=== PATIENT | female | born 1955 | race Two or more races ===

== ENCOUNTER 2019-05-09 08:35 | Day surgery (SDC) | payer OTHER | END 2019-05-09 13:25 | disposition home or self-care (01) | LOC: AMB-ENDOS 08:35 | DX: K63.89 Other specified diseases of intestine (principal); Z12.11 Encounter for screening for malignant neoplasm of colon ==

== ENCOUNTER 2019-08-14 05:50 | Inpatient (IN) | payer OTHER ==
[~2019-08-14 05:50] MED LIST: DILANTIN100 MG PO; LIPITOR20 MG PO; PROTONIX20 MG PO; ZESTRIL5 MG PO
[2019-08-21] MEDS ORDERED: ONDANSETRON ODT4 MG PO (10:48)
[2019-08-21] MEDS ORDERED: PROTONIX40 MG PO (10:49)
[2019-08-21] MEDS ORDERED: PEPCID AC20 MG PO (10:49)
== END 2019-08-21 14:30 | disposition home or self-care (01) | DRG 748 ==
LOC: CIR.AMB 05:50 → O/R 12:34 → SURH 12:34
PROVIDERS: ADMIT Surgery
PROC: 3E0T3BZ Introduction of Anesthetic Agent into Peripheral Nerves and Plexi, Percutaneous Approach (ICD-10-PCS; 2019-08-14)
PROC: BW40ZZZ Ultrasonography of Abdomen (ICD-10-PCS; 2019-08-14)
PROC: 0JQC0ZZ Repair Pelvic Region Subcutaneous Tissue and Fascia, Open Approach (ICD-10-PCS; principal; 2019-08-14 07:00)
PROC: 0DNW4ZZ Release Peritoneum, Percutaneous Endoscopic Approach (ICD-10-PCS; 2019-08-19)
PROC: BF03YZZ Plain Radiography of Gallbladder and Bile Ducts using Other Contrast (ICD-10-PCS; 2019-08-19)
DX: N81.6 Rectocele (principal); K56.51 Intestinal adhesions [bands], with partial obstruction; K80.10 Calculus of gallbladder with chronic cholecystitis without obstruction; K55.20 Angiodysplasia of colon without hemorrhage; K44.9 Diaphragmatic hernia without obstruction or gangrene

== ENCOUNTER 2019-09-23 10:45 | Inpatient (IN) | payer OTHER ==
[~2019-09-23] VITALS: Ht 160 cm; Wt 81.2 kg
[~2019-09-23 10:45] MED LIST changes: +ONDANSETRON ODT4 MG PO; +PEPCID AC20 MG PO; +PROTONIX40 MG PO
[2019-09-23] MEDS ORDERED: CARAFATE1 GM PO (12:18)
[2019-09-25] MEDS ORDERED: ATORVASTATIN CA10 MG PO (10:22)
[2019-09-26] MEDS ORDERED: CARAFATE1 GM/10 ML PO (17:03)
[2019-09-26] MEDS ORDERED: PERCOCET 5-3251 EACH PO (17:03)
[2019-09-26] MEDS ORDERED: POLY119PG PO (17:04)
[2019-09-26] MEDS ORDERED: SIMETHICONE80 MG PO (17:04)
[2019-09-26] MEDS ORDERED: PHENERGAN25 MG PO (17:04)
== END 2019-09-26 18:06 | disposition home or self-care (01) | DRG 328 ==
LOC: O/R 09-25 07:22 → SURH 09-25 07:22 → O/R 09-27 10:45
PROVIDERS: ADMIT Surgery
PROC: 0BUT4JZ Supplement Diaphragm with Synthetic Substitute, Percutaneous Endoscopic Approach (ICD-10-PCS; principal; 2019-09-25 08:15)
PROC: 0DV44ZZ Restriction of Esophagogastric Junction, Percutaneous Endoscopic Approach (ICD-10-PCS; 2019-09-25 08:15)
DX: K44.9 Diaphragmatic hernia without obstruction or gangrene (principal); G40.A09 Absence epileptic syndrome, not intractable, without status epilepticus; K31.89 Other diseases of stomach and duodenum

== ENCOUNTER 2022-12-27 13:44 | Inpatient (IN) | payer OTHER ==
[~2022-12-27] VITALS: Ht 160 cm; Wt 179.6 kg
[~2022-12-27 13:44] MED LIST changes: +ATORVASTATIN CA10 MG PO; +CARAFATE1 GM PO; +CARAFATE1 GM/10 ML PO; +PERCOCET 5-3251 EACH PO; +PHENERGAN25 MG PO; +POLY119PG PO; +SIMETHICONE80 MG PO
[2022-12-27] MEDS ORDERED: METOPROLOL SUCC50 MG PO (13:53)
[2022-12-29] MEDS ORDERED: LOSARTAN POTASS50 MG (08:03)
[2022-12-29] MEDS ORDERED: ELIQUIS5 MG (08:03)
[2023-01-05] MEDS ORDERED: TRAM1TAB98 PO (15:23)
[2023-01-05] MEDS ORDERED: INTESTINEX680 M1 PO (15:23)
[2023-01-05] MEDS ORDERED: LEVOFLOXACIN500 MG PO (15:24)
[2023-01-05] MEDS ORDERED: LEVSIN/SL0.125 MG SL (15:24)
[2023-01-05] MEDS ORDERED: ACID REDUCER20 MG PO (15:25)
== END 2023-01-05 20:11 | disposition home or self-care (01) | DRG 329 ==
LOC: ER 13:44 → SURG 16:41 → ICU-2 16:41 → O/R 16:41 → ICU-2 21:23 → O/R 12-28 14:32 → ICU 12-29 19:12 → SURG 01-02 18:09
PROVIDERS: ADMIT Surgery; ATTEND Surgery
PROC: 4A12X4Z Monitoring of Cardiac Electrical Activity, External Approach (ICD-10-PCS; 2022-12-27)
PROC: 3E0F7SF Introduction of Other Gas into Respiratory Tract, Via Natural or Artificial Opening (ICD-10-PCS; 2022-12-27)
PROC: 0D9670Z Drainage of Stomach with Drainage Device, Via Natural or Artificial Opening (ICD-10-PCS; 2022-12-27)
PROC: 0DTA0ZZ Resection of Jejunum, Open Approach (ICD-10-PCS; 2022-12-28)
PROC: 0DNV0ZZ Release Mesentery, Open Approach (ICD-10-PCS; 2022-12-28)
PROC: 4A1BXSH Monitoring of Gastrointestinal Vascular Perfusion using Indocyanine Green Dye, External Approach (ICD-10-PCS; 2022-12-28)
PROC: 02HV33Z Insertion of Infusion Device into Superior Vena Cava, Percutaneous Approach (ICD-10-PCS; 2022-12-28)
PROC: 3E0436Z Introduction of Nutritional Substance into Central Vein, Percutaneous Approach (ICD-10-PCS; 2022-12-28)
PROC: 5A0945A Assistance with Respiratory Ventilation, 24-96 Consecutive Hours, High Flow/Velocity Cannula (ICD-10-PCS; 2022-12-28)
PROC: 0DTB0ZZ Resection of Ileum, Open Approach (ICD-10-PCS; principal; 2022-12-28 15:00)
PROC: 30233N1 Transfusion of Nonautologous Red Blood Cells into Peripheral Vein, Percutaneous Approach (ICD-10-PCS; 2022-12-29)
PROC: BB24YZZ Computerized Tomography (CT Scan) of Bilateral Lungs using Other Contrast (ICD-10-PCS; 2023-01-02)
DX: K56.50 Intestinal adhesions [bands], unspecified as to partial versus complete obstruction (principal); A41.9 Sepsis, unspecified organism; K55.011 Focal (segmental) acute (reversible) ischemia of small intestine; K46.0 Unspecified abdominal hernia with obstruction, without gangrene; E87.21 Acute metabolic acidosis; R18.8 Other ascites; N17.8 Other acute kidney failure; R59.0 Localized enlarged lymph nodes; I48.0 Paroxysmal atrial fibrillation; K52.9 Noninfective gastroenteritis and colitis, unspecified; E83.39 Other disorders of phosphorus metabolism; E87.6 Hypokalemia; R09.02 Hypoxemia; E87.8 Other disorders of electrolyte and fluid balance, not elsewhere classified